=== PATIENT | female | born 1975 | race African-American/Black ===

== ENCOUNTER 2022-03-31 04:17 | Day surgery (SDC) | payer BC, OTHER ==
[2022-03-27 16:41] VITALS: BMI 26.5
[2022-03-31] MEDS ORDERED: ACETAMINOPHEN 325 MG TABLET (FP) PO PRN (08:59)
[2022-03-31] MEDS ORDERED: IBUPROFEN 800 MG/8 ML IJ IVPB PRN (08:59)
[2022-03-31] MEDS ORDERED: FENTANYL CITRATE/PF 50 MCG/ML VIAL ONE ×4 (09:35)
[2022-03-31] MEDS ORDERED: PROPOFOL 20 ML ONE ×2 (09:36)
[2022-03-31] MEDS ORDERED: ROCURONIUM BROMIDE 50 MG/5 ML SYRINGE ONE (09:36)
[2022-03-31] MEDS ORDERED: MIDAZOLAM HCL 2 MG/2 ML SINGLE DOSE VIAL ONE (09:50)
[2022-03-31] MEDS ORDERED: BUPIVACAINE HCL/PF 0.25% (2.5MG/ML) 10 ML VIAL ONE (09:51)
[2022-03-31] MEDS ORDERED: ceFAZolin SODIUM 1 GM VIAL IVPB ONE (10:18)
[2022-03-31] MEDS ORDERED: BUPIVACAINE HCL/PF 0.5% (5MG/ML) 10 ML VIAL IJ ONE (10:24)
[2022-03-31] MEDS ORDERED: BUPIVACAINE HCL/PF 0.25% (2.5MG/ML) 10 ML VIAL IJ ONE ×2 (10:48)
[2022-03-31] MEDS ORDERED: DEXAMETHASONE SOD PHOSPHATE 4 MG/1 ML VIAL ONE (11:18)
[2022-03-31] MEDS ORDERED: NEOSTIGMINE METHYLSULFATE 0.5 MG/ML - 10 ML MDV ONE (11:18)
[2022-03-31] MEDS ORDERED: GLYCOPYRROLATE 0.2 MG/1 ML VIAL ONE ×2 (11:18)
[2022-03-31] MEDS ORDERED: KETOROLAC TROMETHAMINE 30 MG/1 ML VIAL ONE (11:18)
[2022-03-31] MEDS ORDERED: LACTATED RINGERS SOLUTION 1,000 ML IV SCH (11:45)
[2022-03-31] MEDS ORDERED: oxyCODONE HCL 5 MG TABLET PO PRN (11:45)
[2022-03-31] MEDS ORDERED: ONDANSETRON 4 MG/2 ML VIAL IVPUSH PRN (11:45)
[2022-03-31] MEDS ORDERED: ACETAMINOPHEN 1000 MG/100 ML BAG IVPB ONE ×2 (11:46→12:05)
[2022-03-31 15:09] VITALS: BP 128/61; PULSE 62; TEMP 97.4
== END 2022-03-31 15:15 | disposition home or self-care (01) ==
LOC: JASU-SURG 04:17
PROVIDERS: ATTEND Obstetrics & Gynecology
PROC: 0UT74ZZ Resection of Bilateral Fallopian Tubes, Percutaneous Endoscopic Approach (ICD-10-PCS; 2022-03-31)
PROC: 0UB98ZZ Excision of Uterus, Via Natural or Artificial Opening Endoscopic (ICD-10-PCS; principal; 2022-03-31 09:00)
DX: Z30.2 Encounter for sterilization (principal); N92.0 Excessive and frequent menstruation with regular cycle; D25.9 Leiomyoma of uterus, unspecified
CPT/HCPCS: 81025; 88302-TC; 88305-TC; 94760

== ENCOUNTER 2022-11-10 10:10 | Emergency (ER) | payer BC, OTHER ==
[2022-11-10 10:15] VITALS: BP 129/67; PULSE 65; RESP 18; TEMP 98.5; BMI 26.5
[2022-11-10] MEDS ORDERED: SODIUM CHLORIDE 0.9% 1000 ML INFUS.BAG IV ONE (10:21)
[2022-11-10 10:48] LABS: HCG,QUALITATIVE URINE Negative
[2022-11-10 10:51] LABS: HEMATOCRIT 38.3 % (32.4-45.2); HEMOGLOBIN 13.3 G/dL (10.7-15.3); MCH 28.5 pg (25.7-33.7); MCHC 34.6 g/dl (32.0-36.0); MEAN CELL VOLUME 82.4 fl (80-96); MEAN PLT VOLUME 8.3 fl (7.5-11.1); PLATELET COUNT 235.4 10^3/uL (134-434); RBC 4.65 10^6/uL (3.60-5.2); RDW 14.4 % (11.6-15.6); WHITE BLOOD COUNT 4.9 10^3/uL (4.0-10.8)
[2022-11-10 10:59] LABS: ALBUMIN 3.8 g/dl (3.4-5.0); BILIRUBIN,TOTAL 0.5 mg/dl (0.2-1); CALCIUM 8.5 mg/dl (8.5-10); TOT PROT 6.9 g/dl (6.4-8.2)
[2022-11-10 11:08] LABS: EPITHELIAL CELLS FEW /hpf
== END 2022-11-10 11:30 | disposition home or self-care (01) ==
LOC: FER 10:10
DX: R79.89 Other specified abnormal findings of blood chemistry (principal)
CPT/HCPCS: 36415; 80053; 81003; 81015; 84703; 85025; 99284-25

== ENCOUNTER 2023-01-28 11:41 | Day surgery (SDC) | payer BC, OTHER ==
[2023-01-21 16:02] VITALS: BMI 26.4
[2023-01-28 11:58] VITALS: RESP 18
[2023-01-28 13:36] VITALS: TEMP 98
[2023-01-28 13:37] VITALS: BP 121/65; PULSE 70
== END 2023-01-28 13:35 | disposition home or self-care (01) ==
LOC: FASU-ENDO 11:41
PROVIDERS: ATTEND Internal Medicine Gastroenterology
PROC: 0DJD8ZZ Inspection of Lower Intestinal Tract, Via Natural or Artificial Opening Endoscopic (ICD-10-PCS; principal; 2023-01-28 12:36)
DX: Z12.11 Encounter for screening for malignant neoplasm of colon (principal); K64.1 Second degree hemorrhoids
CPT/HCPCS: 81025